=== PATIENT | male | born 1955 | race Caucasian/White ===

== ENCOUNTER → 2017-02-05 | Outpatient (CLI) | payer OTHER ==
[~2017-02-05] MED LIST: EZET10TA3 PO; INSU100C4 SQ; IOHEXOL 240 MG/ML 50ML VIAL. PO ONE; IOHEXOL 300 MG/ML 75 ML VIAL IV ONE; LISI2.5T PO
--- NOTE | 2017-02-05 12:11 | RAD ---
EXAM: Chest, abdomen and pelvis CT with intravenous contrast. HISTORY: Lymphoma restaging. TECHNIQUE: Computed tomographic images of the chest, abdomen and pelvis were obtained following the administration of 75 cc Omnipaque 300 intravenous contrast. Multiplanar reformatting was performed. COMPARISON: 06/12/2016. FINDINGS: Chest: There has been no significant change in multiple noncalcified pulmonary nodules, measuring 5 mm within the right upper lobe, 3 mm within the left upper lobe, 3 mm along the right minor fissure, 4 mm along the right major fissure, and 6 mm within the right lung base. No new nodules seen. There is upper lobe predominant emphysema with stable right greater than left apical pleural-parenchymal scarring. The heart is normal in size. There is coronary artery atherosclerosis. No pathologically enlarged lymph node is seen. There is slight lateral gynecomastia. Abdomen and pelvis: No hepatic lesion is seen. The gallbladder, pancreas and adrenal glands are unremarkable. The spleen is unremarkable. There is a stable periportal lymph node adjacent to the pancreatic neck measuring 1.2 cm. No pathologically enlarged lymph node is seen. There is a 1.0 cm hypodense lesion within the lateral lower mid zone of the right kidney, consistent with a cyst on the prior CT. The appendix is unremarkable. There is no abnormally dilated or thickened loops of bowel. The bladder is unremarkable. There is no suspicious osseous lesion. There is aortic and aortic branch vessel atherosclerotic plaque. There is severe degenerative change at the lumbosacral junction, with associated foraminal and central canal stenosis. IMPRESSION: 1. Several stable pulmonary nodules, the largest of which measures 6 mm within the right lung base. Continued follow-up can be performed according to Fleischner Society criteria. 2. Bilateral upper lobe predominant emphysema with right greater than left apical pleural-parenchymal scarring. 3. Stable suspected 1.0 cm right renal cyst. PQRS Compliance Statement: One or more of the following individualized dose reduction techniques were utilized for this examination: 1. Automated exposure control 2. Adjustment of the mA and/or kV according to patient size 3. Use of iterative reconstruction technique
== END | disposition home or self-care (01) ==
LOC: CT 12:56
PROVIDERS: ATTEND Internal Medicine Hematology & Oncology
DX: C82.09 Follicular lymphoma grade I, extranodal and solid organ sites (principal); J45.909 Unspecified asthma, uncomplicated; J44.9 Chronic obstructive pulmonary disease, unspecified; Z87.891 Personal history of nicotine dependence; E10.9 Type 1 diabetes mellitus without complications
CPT/HCPCS: 71260; 74177; Q9966; Q9967

== ENCOUNTER → 2018-02-19 | Outpatient (CLI) | payer OTHER ==
[2018-02-19 10:58] LABS: ISTAT CREATININE 1.2 mg/dL (0.7-1.3)
[2018-02-19] MEDS: IOHEXOL 240 MG/ML 50ML VIAL. PO (10:59)
[2018-02-19] MEDS: IOHEXOL 300 MG/ML 100ML VIAL. IV (10:59)
== END | disposition home or self-care (01) ==
LOC: KCIC CT 08:35
DX: C82.90 Follicular lymphoma, unspecified, unspecified site (principal); R91.8 Other nonspecific abnormal finding of lung field
CPT/HCPCS: 71260; 74177; 82565; Q9966; Q9967

== ENCOUNTER → 2018-02-28 | Day surgery (SDC) | payer OTHER ==
[~2018-02-28] MED LIST changes: +ALBUTEROL SULFATE 2.5 MG/3 ML NEBU.; +ALBUTEROL SULFATE 2.5 MG/3 ML NEBU. NEB; +EPINEPHrine 1 MG/ML VIAL ET; -EZET10TA3 PO; -INSU100C4 SQ; -IOHEXOL 240 MG/ML 50ML VIAL. PO ONE; -IOHEXOL 300 MG/ML 75 ML VIAL IV ONE; +LIDOCAINE 1% PF 2 ML VIAL. ID; +LIDOCAINE 2% PF Vial for OR 5 ML VIAL.; -LISI2.5T PO; +MORPHINE SULFATE 2 MG/ML DISP.SYRIN. IV; +ONDANSETRON PF 4 MG/2 ML VIAL. IV; +PHENYLEPHRINE in 0.9% NACL PF 1 MG/10 ML SYRINGE. IV; +PROCHLORPERAZINE 10 MG/2 ML VIAL. IV; +PROPOFOL 20 ML IV; +fentaNYL PF VIAL 100 MCG/2 ML VIAL IV
[2018-02-28] MEDS: IV RINGERS,LACTATED 1000ML 1,000 ML IV (10:15)
[2018-02-28 10:25] LABS: ADD MAN DIFF? NO
[2018-02-28 10:29] LABS: BASO # 0.1 x10^3/uL (0.0-0.2); BASO % 1 % (0-3); EOS # 0.4 x10^3/uL (0.0-0.7); EOS % 5 % (0-3); HEMATOCRIT 40.5 % (39.0-53.0); HEMOGLOBIN 13.7 g/dL (13.0-17.5); LYMPH # 0.8 x10^3/uL (1.0-4.8); LYMPH % 10 % (24-48); MEAN CORPUSCULAR HEMOGLOBIN 31 pg (25-35); MEAN CORPUSCULAR HGB CONC 34 g/dL (31-37); MEAN CORPUSCULAR VOLUME 90 fL (79-100); MONO # 0.8 x10^3/uL (0.0-1.1); MONO % 10 % (0-9); NEUT # 5.6 x10^3uL (1.8-7.7); NEUT % 73 % (31-73); PLATELET COUNT 202 x10^3/uL (140-400); RED BLOOD COUNT 4.48 x10^6/uL (4.30-5.70); RED CELL DISTRIBUTION WIDTH 14.1 % (11.5-14.5); WHITE BLOOD COUNT 7.6 x10^3/uL (4.0-11.0)
[2018-02-28 10:37] LABS: PROTHROMBIN TIME PATIENT 13.1 SEC (11.7-14.0)
[2018-02-28] MEDS: ALBUTEROL SULFATE 2.5 MG/3 ML NEBU. NEB (10:37)
== END ==
LOC: SURG 09:59
DX: T17.890A Other foreign object in other parts of respiratory tract causing asphyxiation, initial encounter (principal); X58.XXXA Exposure to other specified factors, initial encounter; Y93.9 Activity, unspecified; Y92.9 Unspecified place or not applicable
CPT/HCPCS: 31622; 31624; 36415; 85025; 85610; 87070; 88112; 94640; J2370; J2704; J7613

== ENCOUNTER → 2018-10-24 | Outpatient (CLI) | payer OTHER ==
[2018-02-28 11:53] VITALS: BP 138/72
[~2018-10-24] MED LIST changes: -ALBUTEROL SULFATE 2.5 MG/3 ML NEBU.; -ALBUTEROL SULFATE 2.5 MG/3 ML NEBU. NEB; +BREO ELLIPTA 11 EACH IH; -EPINEPHrine 1 MG/ML VIAL ET; +EZET10TA18 PO; +FLUT9.9S NS; +INSU100C4 SQ; +IOHEXOL 240 MG/ML 50ML VIAL. PO ONE; +IOHEXOL 300 MG/ML 100ML VIAL. IV ONE; -LIDOCAINE 1% PF 2 ML VIAL. ID; -LIDOCAINE 2% PF Vial for OR 5 ML VIAL.; +LISI2.5T PO; -MORPHINE SULFATE 2 MG/ML DISP.SYRIN. IV; -ONDANSETRON PF 4 MG/2 ML VIAL. IV; -PHENYLEPHRINE in 0.9% NACL PF 1 MG/10 ML SYRINGE. IV; -PROCHLORPERAZINE 10 MG/2 ML VIAL. IV; -PROPOFOL 20 ML IV; +QUIN20TA17 PO; +TIOT18CA IH; -fentaNYL PF VIAL 100 MCG/2 ML VIAL IV
--- NOTE | 2018-10-24 12:00 | KCIC ---
PQRS Compliance statement: One or more of the following individualized dose reduction techniques were utilized for this examination: 1. Automated exposure control. 2. Adjustment of the mA and/or kV according to patient size. 3. Use of iterative reconstruction technique. Indication:Lymphoma follow-up. TECHNIQUE: CT chest, abdomen and pelviswith IV contrast with multiplanar reformats. COMPARISON: Previous exam from 02/19/2018 FINDINGS: CT chest: Clear neck base. Heart is normal in size. No pericardial or pleural effusion. No enlarged axillary, mediastinal or hilar adenopathy. Stable biapical pleural scarring, worse in the right lung apex. Mild diffuse emphysema. Stable 4 mm nodule in the right upper lobe. Stable 3 mm nodule abutting right minor fissure (series 2 image 35). Stable focal nodularity of the right major fissure (series 2 measures 37). Left lung is clear. No suspicious bony lesions in the chest. CT abdomen pelvis: Liver, spleen, gallbladder, pancreas, adrenals within normal limits. No nephrolithiasis or hydronephrosis. Subcentimeter simple appearing cyst in the right kidney. No enlarged retroperitoneal or pelvic adenopathy. No free pelvic fluid or ascites. No bowel obstruction. Urinary bladder within normal limits. The prostate and seminal vesicles show no large mass. No pneumoperitoneum. No suspicious bony lesion. Advanced L5-S1 degenerative disc disease. IMPRESSION: 1. Stable nonspecific nodules in the right lung. Attention on follow-up. 2. No evidence of abnormal adenopathy. Electronically signed by: Omero Cole DO (10/24/2018 11:57 AM) [facility]
== END | disposition home or self-care (01) ==
LOC: KCIC CT 09:01
PROVIDERS: ATTEND Internal Medicine Hematology & Oncology
DX: C82.09 Follicular lymphoma grade I, extranodal and solid organ sites (principal); M51.37 Other intervertebral disc degeneration, lumbosacral region; J43.9 Emphysema, unspecified; I10 Essential (primary) hypertension; E11.9 Type 2 diabetes mellitus without complications; R91.8 Other nonspecific abnormal finding of lung field; Z87.891 Personal history of nicotine dependence
CPT/HCPCS: 71260; 74177; 82565; Q9966; Q9967

== ENCOUNTER → 2019-04-21 | Outpatient (CLI) | payer MEDICARE ==
[2018-02-28 11:53] VITALS: BP 138/72
--- NOTE | 2019-04-21 13:10 | KCIC ---
EXAM: CT Chest, Abdomen and Pelvis with IV contrast CLINICAL HISTORY: Follicular lymphoma, follow-up COMPARISON: 10/24/2019, 02/19/2018 TECHNIQUE: Helical CT of the chest, abdomen and pelvis was performed following the administration of intravenous contrast. Axial, coronal and sagittal reformatted images were generated. ---PQRS compliance statement - One or more of the following individualized dose reduction techniques were utilized for this study: 1. Automated exposure control 2. Adjustment of the mA and/or kV according to patient size 3. Use of iterative reconstruction technique--- FINDINGS: Chest: Heart is not enlarged. No pericardial effusion. Coronary artery calcifications are seen. Atherosclerotic calcifications of aorta are noted. No mediastinal, hilar or axillary lymphadenopathy. No pleural effusion or pneumothorax. Trace bilateral gynecomastia. Visualized thyroid is unremarkable. Base of neck is grossly unremarkable. Emphysematous changes are seen. A 4 mm right upper lobe lung nodule (series 2 image 21) is stable. 4 mm lung nodule (series 2 image 35) abutting the minor fissure is stable. Mild nodularity of the right major fissure (series 2 image 38) is stable. Biapical pleural/painful scarring/thickening is seen particularly in the right lung apex, stable. Abdomen and Pelvis: No focal liver lesion. Gallbladder is normal. No biliary ductal dilatation. Spleen is unremarkable. Adrenal glands are unremarkable. Pancreas is atrophic. Symmetric nephrograms. Subcentimeter hypodense right lower pole renal lesion is too small to accurately characterize. No hydronephrosis or hydroureter. Appendix is normal. No small or large bowel dilatation. Moderate colonic stool content. No abdominal or pelvic ascites. No abdominal or pelvic lymphadenopathy. Small fat-containing periumbilical hernia. Changes of prior TURP are seen. Bones: Multilevel degenerative changes of the spine are seen. L5-S1 degenerative changes are seen. IMPRESSION: Previously seen lung nodules are stable. Emphysematous changes are again seen. No thoracic, abdominal or pelvic lymphadenopathy Electronically signed by: Martir Heart MD (04/21/2019 1:08 PM) [id number]
== END | disposition home or self-care (01) ==
LOC: KCIC CT 09:08
PROVIDERS: ATTEND Internal Medicine Hematology & Oncology
DX: C82.09 Follicular lymphoma grade I, extranodal and solid organ sites (principal); J43.9 Emphysema, unspecified; R91.8 Other nonspecific abnormal finding of lung field; I10 Essential (primary) hypertension; E11.9 Type 2 diabetes mellitus without complications; I25.10 Atherosclerotic heart disease of native coronary artery without angina pectoris; I70.0 Atherosclerosis of aorta; K86.89 Other specified diseases of pancreas; N28.89 Other specified disorders of kidney and ureter; K42.9 Umbilical hernia without obstruction or gangrene; F17.200 Nicotine dependence, unspecified, uncomplicated
CPT/HCPCS: 71260; 74177; 82565; Q9966; Q9967

== ENCOUNTER → 2021-03-14 | Outpatient (CLI) | payer MEDICARE ==
[2018-02-28 11:53] VITALS: BP 138/72
[~2021-03-14] MED LIST changes: -EZET10TA18 PO; +EZET10TA20 PO; -IOHEXOL 240 MG/ML 50ML VIAL. PO ONE; -IOHEXOL 300 MG/ML 100ML VIAL. IV ONE
--- NOTE | 2021-03-14 17:31 | KCIC ---
EXAM: CT facial bones without contrast CLINICAL HISTORY: Reason: Chronic maxillary sinusitis, difficulty breathing through Lt nostril / Spl. Instructions: / History: COMPARISON: None available. TECHNIQUE: Helical CT of the face/paranasal sinuses was acquired and axial, coronal and sagittal refo rmatted images were generated. ---PQRS compliance statement - One or more of the following individualized dose reduction techniques were utilized for this study: 1. Automated exposure control 2. Adjustment of the mA and/or kV according to patient size 3. Use of iterative reconstruction technique--- FINDINGS: No definite fracture is noted of the facial bones. There is thickening of the right sphenoid sinus with chronic bony changes consistent with chronic sin usitis. here is trace thickening of the left maxillary sinus. Otherwise the paranasal sinuses are sena ar without air-fluid levels. Trace leftward deviation of the nasal septum. The mastoids are unremarkable. The globes, extraocular muscles, optic nerves and retrobulbar fat are normal. Visualized upper aerodigestive tract is normal. Mandible and bilateral temporomandibular joints are normal. IMPRESSION: Thickening of the right sphenoid sinus bony changes consistent with chronic sinusitis. Mild sinusitis left maxillary sinus with mild thickening. Otherwise paranasal sinuses are clear. No acute fracture or dislocation of the facial bones. Electronically signed by: Martir Heart MD (03/14/2021 5:29 PM) [facility]
== END ==
LOC: KCIC CT 10:21
PROVIDERS: ATTEND Family Medicine
DX: J32.0 Chronic maxillary sinusitis (principal); J34.2 Deviated nasal septum
CPT/HCPCS: 70486

== ENCOUNTER → 2021-07-22 | Outpatient (CLI) | payer MEDICARE ==
[2018-02-28 11:53] VITALS: BP 138/72
[~2021-07-22] MED LIST changes: -LISI2.5T PO; +LISI2.5T12 PO
--- NOTE | 2021-07-22 17:31 | KCIC ---
EXAM: CT CHEST WITHOUT CONTRAST (LDCT LUNG CANCER SCREENING). HISTORY: Risk factors for pulmonary malignancy. Approximate 40 to 50 pack-year history is reported. TECHNIQUE: CT of the chest was performed without intravenous contrast using a low-dose lung screening protocol. Findings analysis is based on ACR Lung-RADS v1.1. *One or more of the following individual ized dose reduction techniques were utilized for this examination: 1. Automated exposure control. 2. Adjustment of the mA and/or kV according to patient size. 3. Use of iterative reconstruction technique. RADIATION DOSE: DLP: 114 mGy*cm CTDI VOL(per sequence): 2.89 mGy; 0.14 mGy COMPARISON: 04/21/2019. FINDINGS: Nodules/Lungs: Right more so than left apical scarring is redemonstrated. A few adjacent 4 mm or less nodules at the right lung apex were present previously such as on image 71 series 6. A right upper lobe 4 mm nodule on image 104 series 6 is unchanged. A nodule approaching the right hemidiaphragm appears more conspi cuous on this exam performed with thinner slices but when correlating across the coronal images this is not changed in size again measuring 7 mm transverse on coronal image 26 series 4 similar size of s everal fissural nodules on the right. No significant new or enlarging nodule on the left. Predominantly paraseptal emphysema. Scattered pleuroparenchymal scarring. A few clusters of punctate nodules are again noted such as medially within the right lower lobe. Other Observations: Scattered calcific atherosclerosis to include trivessel coronary artery involvement. Main pulmonary a rtery caliber is within normal limits. No adenopathy. Scattered degenerative osseous findings. IMPRESSION/RECOMMENDATION: 1. Scattered pulmonary nodules, greater in number and size in the right, without significant change f rom comparison exams noting differences in technique. ACR Lung-RADS category: 2. Continue annual scre ening with LDCT in 12 months. 2. Chronic observations to include paraseptal emphysema and trivessel calcific coronary artery diseas e. Electronically signed by: NAN PRIEST MD (07/22/2021 5:29 PM) [facility]
== END ==
LOC: KCIC CT 10:09
PROVIDERS: ATTEND Internal Medicine Pulmonary Disease
DX: Z12.2 Encounter for screening for malignant neoplasm of respiratory organs (principal); J43.9 Emphysema, unspecified; J98.4 Other disorders of lung; I25.10 Atherosclerotic heart disease of native coronary artery without angina pectoris; F17.210 Nicotine dependence, cigarettes, uncomplicated
CPT/HCPCS: 71271

== ENCOUNTER → 2021-07-29 | Outpatient (CLI) | payer MEDICARE ==
[2018-02-28 11:53] VITALS: BP 138/72
--- NOTE | 2021-08-02 14:00 | RESP ---
DATE OF SERVICE: 07/29/2021 ATTENDING PHYSICIAN: Brown Berkowitz MD The patient underwent full pulmonary function testing on 07/29. FEV1/FVC ratio was 61%, FEV1 is decreased to 83% of predicted at 2.70 liters. FVC was 4.37 liters or 100% of predicted. Residual volume was markedly elevated. Diffusion capacity was preserved. IMPRESSION: 1. [id number] airflow limitation. 2. Marked elevation in residual volume compatible with air trapping. BELA/GIUSEPPE DR: Brian TID: [id number]
== END ==
LOC: PF 08:48
PROVIDERS: ATTEND Internal Medicine Pulmonary Disease
DX: J44.9 Chronic obstructive pulmonary disease, unspecified (principal)
CPT/HCPCS: 94010; 94726; 94729